=== PATIENT | female | born 1935 | race Caucasian/White ===

== ENCOUNTER 2018-04-10 07:12 | Inpatient (IN) | payer OTHER ==
[~2018-04-10] VITALS: Ht 160 cm; Wt 63.5 kg
[2018-04-10 07:22] VITALS: Ht 160 cm; Wt 63.5 kg
[2018-04-10 08:37] LABS: BASOPHIL % 0.5 % (0-2); PLATELET COUNT 366 x10^3mcL (130-400); RED CELL DISTRIBUTION WIDTH 13.9 % (11.5-14.5)
[2018-04-10 08:47] LABS: CALCIUM 8.2 mg/dL (8.5-10.1); CARBON DIOXIDE 24.2 mmol/L (21-32); CHLORIDE SERUM 105 mmol/L (98-107); CREATININE SERUM 1.2 mg/dL (0.6-1.0); GLUCOSE SERUM 173 mg/dL (74-106); POTASSIUM SERUM 3.8 mmol/L (3.5-5.1); SODIUM SERUM 139 mmol/L (136-145)
[2018-04-10 08:51] LABS: ALKALINE PHOSPHATASE 58 U/L (46-116); ALT/SGPT 34 U/L (14-59); AST/SGOT 18 U/L (15-37); BILIRUBIN TOTAL 0.54 mg/dL (0.20-1.00); CHOLESTEROL 187 mg/dL (<200); CHOLESTEROL/HDL RATIO 3.3; HDL CHOLESTEROL 57 mg/dL (40-60); LIPASE 128 IU/L (73-393); TRIGLYCERIDES 140 mg/dL (<150)
[2018-04-10 08:52] LABS: ALBUMIN 2.8 g/dL (3.4-5.0); TOTAL PROTEIN, SERUM 6.1 g/dL (6.4-8.2)
[2018-04-10 09:02] LABS: T3 TOTAL 0.87 ng/mL
[2018-04-10 09:04] LABS: FREE T4 1.44 ng/dL (0.76-1.46); FREE THYROXINE INDEX 3.9 ug/dL (1.4-4.5); T4(THYROXINE) 10.2 ug/dL (4.7-13.3)
[2018-04-10] MEDS ORDERED: APR10 PO (10:18)
[2018-04-10] MEDS ORDERED: ASPIR 8181 MG PO (10:18)
[2018-04-10] MEDS ORDERED: NOR10 PO (10:18)
[2018-04-10] MEDS ORDERED: NEU300 PO (10:18)
[2018-04-10] MEDS ORDERED: LIPITOR40 MG PO (10:18)
[2018-04-10] MEDS ORDERED: PLA75 PO (10:19)
[2018-04-10] MEDS ORDERED: DIOVAN320 MG PO (10:19)
[2018-04-10] MEDS ORDERED: BRILINTA90 M1 PO (10:19)
[2018-04-10] MEDS ORDERED: PRILOSEC OTC20 M1 PO (10:19)
[2018-04-10 10:45] LABS: MAGNESIUM 1.6 mg/dL (1.8-2.4); PHOSPHOROUS 2.9 mg/dL (2.5-4.9)
[2018-04-10 11:19] LABS: UA SPECIFIC GRAVITY >=1.030 (1.005-1.035); microscopic required? YES; urine erythrocyte 1+ (NEGATIVE)
[2018-04-10 13:03] VITALS: BP 149/83
[2018-04-10 18:00] VITALS: BP 156/82
[2018-04-10 21:00] VITALS: BP 164/86
[2018-04-10 21:45] VITALS: BP 139/79
[2018-04-11 05:25] VITALS: BP 160/88
[2018-04-11 07:08] LABS: CALCIUM 8.4 mg/dL (8.5-10.1); CARBON DIOXIDE 23.2 mmol/L (21-32); CHLORIDE SERUM 106 mmol/L (98-107); CREATININE SERUM 1.3 mg/dL (0.6-1.0); GLUCOSE SERUM 141 mg/dL (74-106); MAGNESIUM 1.5 mg/dL (1.8-2.4); PHOSPHOROUS 2.7 mg/dL (2.5-4.9); POTASSIUM SERUM 3.8 mmol/L (3.5-5.1); SODIUM SERUM 141 mmol/L (136-145)
[2018-04-11 07:20] LABS: BASOPHIL % 0.5 % (0-2); PLATELET COUNT 345 x10^3mcL (130-400); RED CELL DISTRIBUTION WIDTH 14.4 % (11.5-14.5)
[2018-04-11 09:17] VITALS: BP 166/74
[2018-04-11 16:46] VITALS: BP 147/83
[2018-04-11 21:32] VITALS: BP 107/83
[2018-04-12 05:35] VITALS: BP 138/66
[2018-04-12 06:41] LABS: BASOPHIL % 0.2 % (0-2); PLATELET COUNT 352 x10^3mcL (130-400); RED CELL DISTRIBUTION WIDTH 14.2 % (11.5-14.5)
[2018-04-12 06:48] LABS: CALCIUM 8.4 mg/dL (8.5-10.1); CARBON DIOXIDE 23.3 mmol/L (21-32); CHLORIDE SERUM 108 mmol/L (98-107); CREATININE SERUM 1.4 mg/dL (0.6-1.0); GLUCOSE SERUM 130 mg/dL (74-106); MAGNESIUM 2.1 mg/dL (1.8-2.4); PHOSPHOROUS 3.2 mg/dL (2.5-4.9); POTASSIUM SERUM 3.9 mmol/L (3.5-5.1); SODIUM SERUM 142 mmol/L (136-145)
[2018-04-12 09:50] VITALS: BP 143/65
[2018-04-12 17:06] VITALS: BP 122/53
[2018-04-12 20:04] VITALS: BP 118/50
[2018-04-13 05:44] VITALS: BP 181/68
[2018-04-13 09:33] VITALS: BP 179/76
[2018-04-13 14:57] VITALS: BP 156/67
[2018-04-13 16:45] VITALS: BP 147/60
[2018-04-13 17:25] VITALS: BP 147/60
[2018-04-13] MEDS ORDERED: BD LACTINEX1.4 MG PO (17:43)
[2018-04-13] MEDS ORDERED: LEVAQUIN750 MG PO (17:43)
== END 2018-04-13 20:02 | DRG 280 ==
LOC: ED 07:12 → DU 09:24 → MU 09:24 → DU 12:54 → MU 04-11 08:47
PROVIDERS: Family Medicine; Family Medicine Sports Medicine; Specialist
DX: I21.4 Non-ST elevation (NSTEMI) myocardial infarction (principal); N17.0 Acute kidney failure with tubular necrosis; I50.43 Acute on chronic combined systolic (congestive) and diastolic (congestive) heart failure; E43 Unspecified severe protein-calorie malnutrition; N39.0 Urinary tract infection, site not specified; I13.0 Hypertensive heart and chronic kidney disease with heart failure and stage 1 through stage 4 chronic kidney disease, or unspecified chronic kidney disease; F11.20 Opioid dependence, uncomplicated; M94.0 Chondrocostal junction syndrome [Tietze]; N18.9 Chronic kidney disease, unspecified; E11.22 Type 2 diabetes mellitus with diabetic chronic kidney disease; E11.65 Type 2 diabetes mellitus with hyperglycemia; E11.51 Type 2 diabetes mellitus with diabetic peripheral angiopathy without gangrene; G89.4 Chronic pain syndrome; F45.42 Pain disorder with related psychological factors; G57.01 Lesion of sciatic nerve, right lower limb; I25.10 Atherosclerotic heart disease of native coronary artery without angina pectoris; E83.42 Hypomagnesemia; N28.1 Cyst of kidney, acquired; E03.9 Hypothyroidism, unspecified; K21.9 Gastro-esophageal reflux disease without esophagitis; Z59.0 Homelessness; M71.21 Synovial cyst of popliteal space [Baker], right knee; R31.9 Hematuria, unspecified; E78.5 Hyperlipidemia, unspecified; Z98.1 Arthrodesis status; I25.2 Old myocardial infarction; Z68.25 Body mass index [BMI] 25.0-25.9, adult; Z95.5 Presence of coronary angioplasty implant and graft
CPT/HCPCS: 76770; 82962; 83880; 84439; 97110-GP; 97116-GP; 97530-GP; C9113; J1170; J1815; J1885; J1956; J2060; J2270; J2405; J3475; J3490; J7030; Q0092